=== PATIENT | female | born 1980 ===

== ENCOUNTER 2017-04-10 05:07 | Inpatient (IN) | payer BC ==
[2017-04-10] MEDS ORDERED: NS 0.9% 1000 ML* 1,000 ML IV ONE (05:49)
[2017-04-10] MEDS ORDERED: Ketorolac INJ* 30 MG/ML 1 ML VIAL IV PUSH ONE (05:50)
--- NOTE | 2017-04-10 06:14 | ED ---
Perla Nguyen Alfonso, scribed for Quinn Ba MD on 04/10/17 at 0518 . Headache - HPI Summary HPI Summary: This patient is a 36 year old female presenting to [facility] c/o a headache since yesterday afternoon. The headache gradually worsened, waking her up at 0300 today. She reports back pain since yesterday morning that is affected by change in position. She rates the pain 10/10 in severity. Headache symptoms aggravated by light and not alleviated by Tylenol. She also reports nausea, fever, weakness , and diaphoresis. Patient reports not having visited a PCP in the last 20 years. - History Of Current Complaint Chief Complaint: EDHeadache Stated Complaint: BACK PAIN/HEADACHE Hx Obtained From: Patient Onset/Duration: Gradual Onset, Started hours ago - Yesterday afternoon, Worse Since Initially Headache Was: Initial Pain Scale(0-10)= - 10/10, Moderate Currently Pain Is: Moderate Timing: Constant Aggravating Factor: Bright Lights Allevating Factors: Nothing, Other (Noted In Comments) - Not allevated by Tylenol Associated Signs And Symptoms: Nausea, Fever, Other (Noted In Comments) - Positive diaphoresis, weakness, and back pain - Allergies/Home Medications Allergies/Adverse Reactions: Allergies Allergy/AdvReac Type Severity Reaction Status Date / Time Ephedrine Allergy Shortness Verified 04/10/17 05:14 of Breath Home Medications: Home Medications NK [No Home Medications Reported] 04/10/17 [History Confirmed 04/10/17] PMH/Surg Hx/FS Hx/Imm Hx Sensory History: Denies: Hx Legally Blind, Hx Deafness Infectious Disease History: Denies: Traveled Outside the [place] in Last 30 Days - Family History Known Family History: Positive: Hypertension - Mother and father, Other - Marfan syndrome brother - Social History Lives: With Family Alcohol Use: None Substance Use Type: Reports: None Hx Tobacco Use: No Smoking Status (MU): Never Smoked Tobacco Review of Systems Positive: Fever, Skin Diaphoresis Positive: Nausea Positive: Arthralgia - Back pain Positive: Headache, Weakness All Other Systems Reviewed And Are Negative: Yes Physical Exam Triage Information Reviewed: Yes Vital Signs On Initial Exam: Initial Vitals Temp Pulse Resp BP Pulse Ox 98.3 F 94 20 111/83 98 04/10/17 05:11 04/10/17 05:11 04/10/17 05:11 04/10/17 05:11 04/10/17 05:11 Vital Signs Reviewed: Yes Appearance: Positive: Well-Appearing, Pain Distress - mildly uncomfortable Skin: Positive: Warm Head/Face: Positive: Normal Head/Face Inspection Eyes: Positive: EOMI, VINOD, Conjunctiva Clear ENT: Positive: Pharynx normal, TMs normal Neck: Positive: Supple, Nontender Respiratory/Lung Sounds: Positive: Clear to Auscultation, Breath Sounds Present Cardiovascular: Positive: RRR Abdomen Description: Positive: Nontender, No Organomegaly, Soft Bowel Sounds: Positive: Present Musculoskeletal: Positive: Strength/ROM Intact Neurological: Positive: Sensory/Motor Intact, Alert, Oriented to Person Place, Time, Normal Gait Psychiatric: Positive: Affect/Mood Appropriate Diagnostics - Vital Signs Vital Signs Temp Pulse Resp BP Pulse Ox 04/10/17 05:11 98.3 F 94 20 111/83 98 - Laboratory Result Diagrams: 04/10/17 06:03 04/10/17 06:03 Lab Statement: Any lab studies that have been ordered have been reviewed, and results considered in the medical decision making process. Re-Evaluation - Re-Evaluation First Eval Re-Evaluation Time: 06:45 Change: Improved - pt improving with fluids, awaiting labs and re evaluation, will sign out Headache Course/Dx - Diagnoses Provider Diagnoses: Viral meningitis Discharge - Discharge Plan Condition: Stable Disposition: ADMITTED TO [facility] documentation as recorded by the Perla hernandez Alfonso accurately reflects the service I personally performed and the decisions made by , Quinn Ba MD.
[2017-04-10 06:21] LABS: Hematocrit 40 % (35-47); Hemoglobin 13.4 g/dl (12.0-16.0); Mean Corpuscular HGB Conc 33 g/dl (31-36); Mean Corpuscular Hemoglobin 29 pg (27-31); Mean Corpuscular Volume 87 fL (80-97); Mean Platelet Volume 9 um3 (7.4-10.4); Red Blood Count 4.62 10^6/ul (4.0-5.4); Red Cell Distribution Width 13 % (10.5-15); White Blood Count 8.5 10^3/ul (3.5-10.8)
[2017-04-10 06:30] LABS: ALT 12 U/L (7-52); AST 12 U/L (13-39); Albumin 4.3 g/dL (3.2-5.2); Alkaline Phosphatase 50 U/L (34-104); Anion Gap 6 mmol/L (2-11); BUN/Creatinine Ratio 17.5 (8-20); Blood Urea Nitrogen 10 mg/dL (6-24); C Reactive Protein 1.54 mg/L (< 5.00); CO2 Carbon Dioxide 25 mmol/L (22-32); Calcium 9.1 mg/dL (8.6-10.3); Chloride 105 mmol/L (101-111); Creatine Kinase 61 U/L (10-223); EGFR African American 153.5 (>60); EGFR Non-African American 119.3 (>60); Globulin 2.6 g/dL (2-4); Glucose 105 mg/dL (70-100); Magnesium 1.9 mg/dL (1.9-2.7); Potassium 3.9 mmol/L (3.5-5.0); Sodium 136 mmol/L (133-145); Total Protein 6.9 g/dL (6.4-8.9)
[2017-04-10 07:39] LABS: Urine Bilirubin Negative (Negative); Urine Glucose Negative (Negative); Urine Nitrite Negative (Negative)
[2017-04-10 09:34] LABS: Body Fluid Appearance Clear
[2017-04-10 09:37] LABS: CSF Glucose 61 mg/dL (40-70)
[2017-04-10 09:40] LABS: BF RBC Count #1 10; BF WBC Count #1 126
[2017-04-10 09:47] LABS: BF RBC Count #2 9; BF WBC Count #2 128; RBC counts within 6%? Yes; WBC counts within 15%? Yes
[2017-04-10 09:57] LABS: Body Fluid Total Cells Counted 100
[2017-04-10 09:59] LABS: Body Fluid WBC 141 /mcL
[2017-04-10] MEDS ORDERED: Ondansetron INJ* 2 MG/ML VIAL IV PRN (10:11)
[2017-04-10] MEDS ORDERED: Dexamethasone IV* 10 MG in NS 0.9% 50 ML* 50 ML IVPB ONE (11:21)
[2017-04-10] MEDS ORDERED: Vancomycin(*) 750 MG in NS 0.9% 250 ML* 250 ML IVPB ONE (11:21)
[2017-04-10] MEDS ORDERED: NS 0.9% IVPB SCH (12:00)
[2017-04-10] MEDS ORDERED: ACYCLOVIR IVPB SCH (12:00)
[2017-04-10] MEDS ORDERED: Dexamethasone IV* 4 MG/ML 5 ML VIAL (20 MG) ONE (12:17)
[2017-04-10] MEDS: Acetaminophen TAB* 325 MG PO PRN ×2 (12:39→21:53)
[2017-04-10] MEDS ORDERED: Ketorolac INJ* 30 MG/ML 1 ML VIAL IV PUSH PRN (13:42)
[2017-04-10] MEDS ORDERED: Vancomycin(*) 1,250 MG in NS 0.9% 250 ML* 250 ML IVPB ONE (14:00)
[2017-04-10] MEDS ORDERED: Vancomycin per Pharmacy* NOTE FOLLOW UP PRN (14:10)
--- NOTE | 2017-04-10 16:39 | ED ---
Harhsa Nguyen Auryana, scribed for Ryan Hall MD on 04/10/17 at 0844 . Progress - Progress Note Progress Note: signout from Dr. Ba to Dr. Hall at 07:00 Pending UA. 36 year old female presents with a severe KELLY, back pain, neck pain for 1 day. She also has a fever, and general weakness. KELLY made worse by light. No history of KELLY. No lymphadenopathy. Will do a LP. Procedure note: After informed consent was obtained, she was prepped and draped in the usual sitting fashion. She was anesthetized with 2% lidocaine - 2cc. A 22 gauge needle was used to enter the dura and about 4 cc's of clear fluid was obtained easily. The opening pressure was 22 cm's She tolerated the procedure well and was dressed and placed flat. - Results/Orders Results/Orders: UA - SPEC GRAV 1.005 BUT OTHERWISE NML LP - (+) for WBC 141 - Consult/PCP Time Called: 10:06 Consult/PCP: hospitalist - DR. GLEASON Consult Reason/Comments: elevated WBC in CSF - agrees to admit patient Course/Dx - Course Course Of Treatment: Ms. Aissatou Huang presented with a bad KELLY and no previous history of KELLY. She got a bit better with toradol but was still quite symptomatic when I saw her. Her LP returned with a viral picture and she was admitted to the hospitalist service iin stable condition with a diagnosis of meningitis. - Diagnoses Provider Diagnoses: Viral meningitis - Provider Notifications Discussed Care Of Patient With: Rosy Gleason Time Discussed With Above Provider: 10:07 - agrees to admit - Critical Care Time Critical Care Time: 30-74 min The documentation as recorded by the Harsha hernandez Auryana accurately reflects the service I personally performed and the decisions made by me, Ryan Hall MD.
--- NOTE | 2017-04-10 16:48 | HP ---
HISTORY AND PHYSICAL: DATE OF ADMISSION: 04/10/17 PRIMARY CARE PROVIDER: None. ATTENDING PHYSICIAN: Rosy Bowens MD *(dictated by Keven Vargas NP). CHIEF COMPLAINT: Headache. HISTORY OF PRESENT ILLNESS: Ms. Aissatou Huang is a 36-year-old female with no significant past medical history who reports developing a headache yesterday afternoon that got worse over the time and eventually after she went to bed, woke her up at 3 a.m. The patient reports associated back pain, nausea, fever, diaphoresis, generalized weakness, sensitivity to light. The patient is a recent immigrant from [place], immigrating 7 months ago. The patient denies any recent history of hiking or exposure to ticks that she is aware of. She presented to the hospital for further evaluation of her symptoms. While in the emergency room, the patient had labs that were unremarkable. She had a urinalysis that was unremarkable. Due to the patient's complaint of headache, she underwent a lumbar puncture. This is significant for white blood cell count of 141 and a total protein of 152. CSF Gram stain was positive for 3 + polys, 4+ nucleated cells, no organisms. Based off the patient's presentation and concern for meningitis, the hospitalists were asked to evaluate the patient for admission. PAST MEDICAL HISTORY: None. PAST SURGICAL HISTORY: None. HOME MEDICATIONS: None. ALLERGIES: EPHEDRINE. FAMILY HISTORY: The patient's mother and father have a history of hypertension and the patient's brother has history of Marfan syndrome. The patient denies any other family history of coronary artery disease, diabetes mellitus, or cancer. SOCIAL HISTORY: The patient denies tobacco use, alcohol use, or recreational drug use. She is and lives with her , Jose F Meza, who will be her surrogate decision maker in the event she is unable to make decisions for herself. REVIEW OF SYSTEMS: I performed a 14-point review of systems. All the pertinent positive and negatives are mentioned in the history of present illness. The remaining review of systems are negative. PHYSICAL EXAMINATION GENERAL APPEARANCE: The patient is alert, pleasant, appears to be in no acute distress. VITAL SIGNS: Temperature 99.2, heart rate 97, respiratory rate 16, O2 sat 100% on room air, blood pressure 117/63. HEENT: Normocephalic, atraumatic. Pupils are equal and reactive to light. Extraocular movements are intact. NECK: Supple. There is no lymphadenopathy noted. The patient reports some discomfort with moving her chin to her chest. RESPIRATORY: There is no accessory muscle use. The lungs are clear to auscultation bilateral. CARDIOVASCULAR: Regular rate and rhythm. S1 and S2 present. There is no murmurs, rubs or gallops heard. ABDOMEN: Soft, nontender, and nondistended. There are bowel sounds present x4. EXTREMITIES: There is no lower extremity edema. DP and PT pulses are 2+ and symmetric. MUSCULOSKELETAL: There is no clubbing or cyanosis noted. The patient exhibits good strength in all extremities. NEUROLOGIC: The patient is alert and oriented x4. Cranial nerves II through XII are grossly intact. PSYCHOLOGICAL: The patient is calm and cooperative. SKIN: There is no rashes or abnormalities seen. DIAGNOSTIC STUDIES/LABORATORY DATA: Sodium 136, potassium 3.9, chloride 105, CO2 of 25, BUN 10, creatinine 0.57, glucose 105. White blood cell count 8.5, hemoglobin 13.4, hematocrit 40, and platelet count 276,000. CRP 1.54. Lumbar puncture with cerebrospinal fluid significant for WBC's 141 and total protein 152. Urinalysis is negative. IMPRESSION: Ms. Aissatou Huang is a 36-year-old female with no significant past medical history who presents to the emergency room with complaints of sudden onset of headache for 1 day. She will be admitted as an observation for meningitis. ASSESSMENT/PLAN: 1. Meningitis. I suspect this is a viral meningitis. The patient will have neurological checks and supportive care. We will provide her with pain control and nausea medicine. She will be placed on ceftriaxone 2 g IV twice daily in addition to vancomycin per pharmacy protocol with a trough goal of 15 to 20. We will also add on varicella zoster PCR to her spinal fluid in addition to herpes simplex PCR. We will touch base with Infectious Disease to see if they recommend any other testing. 2. Fluids, electrolytes and nutrition. The patient will be on a regular diet. 3. Code status. Full code. 4. DVT prophylaxis. The patient is a low risk and will be encouraged to ambulate. If she is unable to ambulate, we will place SCD's on her. 5. Disposition. Observation. TIME SPENT: The time for this admission was approximately 60 minutes and greater than half of that was spent [id number] with the patient and discussing medications, past medical history and the events leading up to her arrival today and performing a physical examination. The case has been reviewed with the attending, Dr. Bowens, who agrees with the plan of care. Reviewed by KEVEN VARGAS, LISA-C 04/10/17 2136 [id number]/[facility] #: [id number] MTDD
[2017-04-10] MEDS: Vancomycin(*) 1,000 MG in NS 0.9% 250 ML* 250 ML IVPB SCH (20:10)
[2017-04-11] MEDS: Vancomycin(*) 1,000 MG in NS 0.9% 250 ML* 250 ML IVPB SCH ×4 (03:11→20:12)
--- NOTE | 2017-04-11 13:43 | PN ---
Subjective Date of Service: 04/11/17 Interval History: . pt reports she feels much much better today reporting her KELLY is almost resolved , photophobia has resolved, no further fevers, nausea. She reports her appetite has returned. She can get OOB and ambulate to the bathroom today which she states she could not do yesterday. She also reports she was not able to bend her knees and flex her hips yesterday but is now able to move her legs freely; she has some residual low back pain but much improved compared to yesterday - she does still feel guarded with her movements secondary to back pain. 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 She reports the viruses she works with are non-pathogenic. She has tested + for CMV , EBV and herpes in the past. Objective Active Medications: Acetaminophen (Tylenol Tab*) 650 mg PO Q6H PRN PRN Reason: pain/fever Last Admin: 04/10/17 21:53 Dose: 650 mg Ceftriaxone Sodium 2 gm/ (Sodium Chloride) 100 mls @ 200 mls/hr IVPB Q12H PENDING SALE TO [facility] Last Admin: 04/11/17 01:56 Dose: 200 mls/hr Vancomycin HCl 1,000 mg/ (Sodium Chloride) 250 mls @ 166.667 mls/hr IVPB Q6H PENDING SALE TO [facility] Last Admin: 04/11/17 09:41 Dose: 166.667 mls/hr Ketorolac Tromethamine (Toradol Inj*) 30 mg IV PUSH Q6H PRN PRN Reason: PAIN Ondansetron HCl (Zofran Inj*) 4 mg IV Q6H PRN PRN Reason: NAUSEA Pharmacy Consult (Vancomycin Per Pharmacy*) 1 note FOLLOW UP . PRN PRN Reason: PER PROTOCOL Pharmacy Profile Note (Vancomycin Trough Check) 1 note FOLLOW UP 1500 ONE Stop: 04/11/17 15:01 Vital Signs 04/10/17 04/10/17 04/10/17 15:40 19:23 19:50 Temperature 99.2 F 97.6 F Pulse Rate 111 106 Respiratory 16 18 18 Rate Blood Pressure 120/64 118/66 (mmHg) O2 Sat by Pulse 98 99 Oximetry 04/10/17 04/10/17 04/11/17 22:00 23:38 03:56 Temperature 98.0 F 98.9 F 97.8 F Pulse Rate 116 96 Respiratory 16 14 Rate Blood Pressure 117/58 104/53 (mmHg) O2 Sat by Pulse 98 99 Oximetry 04/11/17 04/11/17 04/11/17 07:46 08:00 11:30 Temperature 98.1 F Pulse Rate 89 94 Respiratory 16 16 16 Rate Blood Pressure 105/54 108/58 (mmHg) O2 Sat by Pulse 99 99 Oximetry Oxygen Devices in Use Now: None Appearance: 36 yo female A+O x3 in NAD. Eyes: No Scleral Icterus, PERRLA Ears/Nose/Mouth/Throat: NL Teeth, Lips, Gums, Mucous Membranes Moist Neck: NL Appearance and Movements; NL JVP Respiratory: Symmetrical Chest Expansion and Respiratory Effort, Clear to Auscultation Cardiovascular: NL Sounds; No Murmurs; No JVD, RRR, No Edema Abdominal: NL Sounds; No Tenderness; No Distention Extremities: No Edema, No Clubbing, Cyanosis Skin: No Rash or Ulcers, No Nodules or Sclerosis Neurological: Alert and Oriented x 3, NL Sensation, NL Muscle Strength and Tone , - - negative brudzinski Lines/Tubes/Other Access: Clean, Dry and Intact Peripheral IV Nutrition: Taking PO's Result Diagrams: 04/10/17 06:03 04/10/17 06:03 Assess/Plan/Problems-Billing Assessment: Ms. Aissatou Huang is a 36 yo female with no significant PMH who presented to the ED on 04/10 with sudden onset of KELLY x 1 day with accompanied back pain, nausea, fever, diaphoresis, photophobia and generalized weakness admitted for viral meningitis - Patient Problems (1) Viral meningitis Comment: - suspect viral meningistis with CSF WBC 141, total protein 152 and clinical symptoms she presented with - was given decadron in ED and started on vano, ceftriaxone. - lyme, herpes/varicella CSF PCR sent and is pending. Add on HIV. - Continue Neuro checks - ID to consult tomorrow. (2) DVT prophylaxis Comment: SCDs (3) Full code status Status: Acute Status and Disposition: inpatient with viral meningitis. Plan for ID consult tomorrow.
[2017-04-11] MEDS: Acetaminophen TAB* 325 MG PO PRN (14:24)
[2017-04-11] MEDS ORDERED: Vancomycin Trough Check NOTE FOLLOW UP ONE (15:00)
[2017-04-12] MEDS: Vancomycin(*) 1,000 MG in NS 0.9% 250 ML* 250 ML IVPB SCH ×2 (03:10→09:33)
[2017-04-12] MEDS: Acetaminophen TAB* 325 MG PO PRN ×2 (04:06→19:38)
[2017-04-12 07:26] LABS: Hematocrit 37 % (35-47); Hemoglobin 12.3 g/dl (12.0-16.0); Mean Corpuscular HGB Conc 33 g/dl (31-36); Mean Corpuscular Hemoglobin 30 pg (27-31); Mean Corpuscular Volume 90 fL (80-97); Mean Platelet Volume 9 um3 (7.4-10.4); Red Blood Count 4.14 10^6/ul (4.0-5.4); Red Cell Distribution Width 13 % (10.5-15); White Blood Count 8.6 10^3/ul (3.5-10.8)
[2017-04-12 07:34] LABS: BUN/Creatinine Ratio 11.1 (8-20); Calcium 8.5 mg/dL (8.6-10.3); EGFR African American 163.4 (>60); Potassium 3.5 mmol/L (3.5-5.0)
--- NOTE | 2017-04-12 10:22 | PN ---
Subjective Date of Service: 04/12/17 Interval History: Patient seen and examined at bedside, at bedside. She reports feeling better than she did previously this weekend. Reports headache is "almost gone," denies photophobia, n/v, chest pain, SOB. She only endorses feeling tired and fatigued and is eager to go home. Family History: Unchanged from Admission Social History: Unchanged from Admission Past Medical History: Unchanged from Admission Objective Active Medications: Acetaminophen (Tylenol Tab*) 650 mg PO Q6H PRN PRN Reason: pain/fever Last Admin: 04/12/17 04:06 Dose: 650 mg Ceftriaxone Sodium 2 gm/ (Sodium Chloride) 100 mls @ 200 mls/hr IVPB Q12H [facility] Last Admin: 04/12/17 01:05 Dose: 200 mls/hr Vancomycin HCl 1,000 mg/ (Sodium Chloride) 250 mls @ 166.667 mls/hr IVPB Q6H [facility] Last Admin: 04/12/17 09:33 Dose: 166.667 mls/hr Ketorolac Tromethamine (Toradol Inj*) 30 mg IV PUSH Q6H PRN PRN Reason: PAIN Ondansetron HCl (Zofran Inj*) 4 mg IV Q6H PRN PRN Reason: NAUSEA Pharmacy Consult (Vancomycin Per Pharmacy*) 1 note FOLLOW UP . PRN PRN Reason: PER PROTOCOL Pharmacy Profile Note (Vancomycin Trough Check) 1 note FOLLOW UP 0900 ONE Stop: 04/13/17 09:01 Vital Signs 04/11/17 04/11/17 04/11/17 15:12 20:00 23:45 Temperature 98.6 F 98.9 F Pulse Rate 99 93 Respiratory 16 16 16 Rate Blood Pressure 108/63 115/65 (mmHg) O2 Sat by Pulse 98 98 Oximetry 04/12/17 04/12/17 04:03 07:38 Temperature 100.2 F 98.2 F Pulse Rate 93 85 Respiratory 16 16 Rate Blood Pressure 111/64 108/61 (mmHg) O2 Sat by Pulse 98 98 Oximetry Oxygen Devices in Use Now: None Appearance: Young female, lying in bed, NAD Eyes: PERRLA Ears/Nose/Mouth/Throat: Mucous Membranes Moist Neck: NL Appearance and Movements; NL JVP Respiratory: Symmetrical Chest Expansion and Respiratory Effort, Clear to Auscultation Cardiovascular: NL Sounds; No Murmurs; No JVD, RRR Abdominal: NL Sounds; No Tenderness; No Distention Extremities: No Edema, No Clubbing, Cyanosis Skin: No Rash or Ulcers Neurological: Alert and Oriented x 3, NL Muscle Strength and Tone Lines/Tubes/Other Access: Clean, Dry and Intact Peripheral IV Nutrition: Taking PO's Result Diagrams: 04/12/17 06:51 04/12/17 06:51 Assess/Plan/Problems-Billing Assessment: Ms. Aissatou Huang is a 36 yo female with no significant PMH who presented to the ED on 04/10 with sudden onset of KELLY x 1 day with accompanied back pain, nausea, fever, diaphoresis, photophobia and generalized weakness admitted for viral meningitis - Patient Problems (1) Viral meningitis Code(s): A87.9 - VIRAL MENINGITIS, UNSPECIFIED Comment: Suspect viral meningitis CSF WBC 141, total protein 152, glucose 61 Received dexamethasone in ED and started on vancomycin, ceftriaxone. Lyme, HSV, varicella CSF PCR sent and is pending. Add on HIV. Continue Neuro checks ID input appreciated. (2) DVT prophylaxis Comment: SCDs (3) Full code status Code(s): Z78.9 - OTHER SPECIFIED HEALTH STATUS Status and Disposition: Inpatient with viral meningitis. ID consult pending.
--- NOTE | 2017-04-12 19:01 | CONS ---
CONSULTATION REPORT: DATE OF CONSULT: 04/12/17 REQUESTING PHYSICIAN: Dr. Matute. CONSULTING SERVICE: Infectious Disease. REASON FOR CONSULT: Aseptic meningitis. IMPRESSION: Three days of headache, fever, and photophobia. Spinal fluid shows 140 white cells, 75% lymphocytes, protein 150, glucose normal. Gram stain showed no organisms. The culture of the spinal fluid is negative. Technically, most consistent with aseptic meningitis due to viral function. The differential diagnosis includes the enteroviruses, though she lacks GI type symptoms, arboviruses including West Nile, tick-borne would be - borrelia; however, she does not have an EM rash, and she has recovered quite quickly which I guess is against the Lyme meningitis a little bit. She is from [place]. TB is a consideration; however, acute onset and improvement without antituberculosis therapy are used against it as well. RECOMMENDATION: We will stop the vancomycin, change to ceftriaxone to 1 g a day to cover Lyme while awaiting the Lyme antibody. She has had spinal fluid sent for HSV and varicella, which is pending. We will add a [facility] encephalitis panel to get the other arboviruses tested for. HISTORY OF PRESENT ILLNESS: This is a 36-year-old healthy woman admitted with headache and fever. She was well until Wednesday. She developed diffuse back pain , which was progressive and then muscle aches and stiffness, and then a fever and then headache and photophobia in sequence. Because of worsening of all those symptoms, she came to the ER on 04/10/17. She had a white blood cell count of 8. She was febrile to 101. She had minimal improvement with Toradol. She had spinal fluid obtained with results as noted above. She was started on vancomycin and ceftriaxone. Wednesday, she was feeling much better, and then yesterday, some of the headache came back, mostly the frontal, not worse sitting up or standing. Her back pain came a little more focal in the low back. This morning, she had a temperature of 38 degrees. When she woke up this morning, her headache was improved again. Back pain was a bit more mid back and it has moved a little bit during the day. When she lies still, she has no headache or back pain. They both get a little bit worse with movement, even rolling over in bed. Photophobia is improving. No phonophobia. She has no fevers today. Her appetite has improved. She is feeling more energetic. PAST MEDICAL HISTORY: None. ALLERGIES: EPHEDRINE. FAMILY HISTORY: None. SOCIAL HISTORY: She is from [place]. Moved here with her . 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 REVIEW OF SYSTEMS: All negative for review of systems except as noted above. PHYSICAL EXAM: Vital Signs: Temperature 37, heart rate 80, respiratory rate 16 , blood pressure 108/61, O2 sat 98% on room air. General: She is awake, not in distress. Neurologic: She is oriented x3, follows all commands. Cranial nerves II through XII are intact. HEENT: There is no conjunctival hemorrhage. Oropharynx without lesions. Neck: Neck is supple without nuchal rigidity. There is no cervical, supraclavicular, inguinal, axillary, or epitrochlear lymphadenopathy. Heart: Regular rate and rhythm without murmurs, rubs, or gallops. Lungs: Clear to auscultation bilaterally. Abdomen: Soft, nontender , nondistended. Skin: There is no rash or splinter hemorrhages. Musculoskeletal: No spine tenderness to palpation or paraspinal muscle tenderness to palpation. There is no joint synovitis. DIAGNOSTIC STUDIES/LAB DATA: White blood cell count 8, hemoglobin 12, platelets 260, creatinine 0.5, beta HCG negative. CRP 1. Please see impression and recommendations outlined above, which I have discussed with Carrie Chew NP. Thank you for asking me to see Ms. Aissatou Huang in consultation. [id number]/[facility] #: [id number] KATHY
[2017-04-13 07:46] VITALS: BP 104/64
--- NOTE | 2017-04-13 08:49 | PN ---
Subjective Date of Service: 04/13/17 Interval History: Patient seen and examined at bedside. She feels well rested and overall "much better." She reports a mild KELLY along the left side of her head that is "barely there." She is tolerating PO intake. No acute concerns at this time. She is ambulating without difficulty. Family History: Unchanged from Admission Social History: Unchanged from Admission Past Medical History: Unchanged from Admission Objective Active Medications: Acetaminophen (Tylenol Tab*) 650 mg PO Q6H PRN PRN Reason: pain/fever Last Admin: 04/12/17 19:38 Dose: 650 mg Ceftriaxone Sodium 1 gm/ (Sodium Chloride) 100 mls @ 200 mls/hr IVPB Q24HR LIZ Ketorolac Tromethamine (Toradol Inj*) 30 mg IV PUSH Q6H PRN PRN Reason: PAIN Ondansetron HCl (Zofran Inj*) 4 mg IV Q6H PRN PRN Reason: NAUSEA Vital Signs 04/12/17 04/12/17 04/12/17 12:46 15:27 19:28 Temperature 97.9 F 97.8 F 98.7 F Pulse Rate 78 84 86 Respiratory 16 15 16 Rate Blood Pressure 115/71 130/72 103/56 (mmHg) O2 Sat by Pulse 98 99 98 Oximetry 04/12/17 04/12/17 04/12/17 20:26 20:29 23:14 Temperature 98.4 F Pulse Rate 79 Respiratory 16 16 16 Rate Blood Pressure 101/57 (mmHg) O2 Sat by Pulse 99 Oximetry 04/13/17 07:16 Temperature 98.7 F Pulse Rate 87 Respiratory 16 Rate Blood Pressure 104/64 (mmHg) O2 Sat by Pulse 98 Oximetry Oxygen Devices in Use Now: None Appearance: Young female, lying in bed, NAD Eyes: PERRLA Ears/Nose/Mouth/Throat: Mucous Membranes Moist Neck: NL Appearance and Movements; NL JVP, - - no nuchal rigidity Respiratory: Symmetrical Chest Expansion and Respiratory Effort, Clear to Auscultation Cardiovascular: NL Sounds; No Murmurs; No JVD, RRR Abdominal: NL Sounds; No Tenderness; No Distention Extremities: No Edema, No Clubbing, Cyanosis Skin: No Rash or Ulcers Neurological: Alert and Oriented x 3, NL Muscle Strength and Tone Lines/Tubes/Other Access: Clean, Dry and Intact Peripheral IV Nutrition: Taking PO's Result Diagrams: 04/12/17 06:51 04/12/17 06:51 Assess/Plan/Problems-Billing Assessment: Ms. Aissatou Huang is a 36 yo female with no significant PMH who presented to the ED on 04/10 with sudden onset of KELLY x 1 day with accompanied back pain, nausea, fever, diaphoresis, photophobia and generalized weakness admitted for viral meningitis - Patient Problems (1) Viral meningitis Code(s): A87.9 - VIRAL MENINGITIS, UNSPECIFIED Comment: Suspect viral meningitis CSF WBC 141, total protein 152, glucose 61 Continue ceftriaxone, pending return of Lyme and other PCR testing. Lyme, HSV, varicella CSF PCR sent and is pending. HIV negative Continue Neuro checks ID input appreciated. (2) DVT prophylaxis Comment: SCDs (3) Full code status Code(s): Z78.9 - OTHER SPECIFIED HEALTH STATUS Status and Disposition: Inpatient with viral meningitis. ID following.
[2017-04-13] MEDS ORDERED: Vancomycin Trough Check NOTE FOLLOW UP ONE (09:00)
[2017-04-13 14:53] LABS: HSV 1 PCR, CSF Negative (Negative); HSV 2 PCR, CSF Positive (Negative)
[2017-04-13 21:15] LABS: Varicella Zoster Result Negative (Negative); Varicella Zoster Source CSF
--- NOTE | 2017-04-14 15:21 | DS ---
CC: Dr. Ramsey.* DISCHARGE SUMMARY: DATE OF ADMISSION: 04/11/17 DATE OF DISCHARGE: 04/13/17 PROVIDER: Joellen Prince NP ATTENDING PHYSICIAN: Maxwell Vargas MD *(as dictated by Joellen Prince NP). CONSULTING PHYSICIAN: Dr. Ramsey. PRIMARY CARE PROVIDER: No primary care provider, referral sent. PRIMARY DISCHARGE DIAGNOSES: 1. Viral meningitis. 2. Positive HSV-2 CSF result. MEDICATIONS AT DISCHARGE: None. HOSPITAL COURSE OF STAY: For full details, please refer to the H and P provided by Kandy Valdez, nurse practitioner, on 04/10/17. In summary, Ms. 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 She had a lumbar puncture in the emergency room, which was significant for a WBC count of 141 and total protein of 152. Her CSF Gram stain was positive for 3+ polys, 4+ nucleated cells, and no organisms. The patient had concerns for viral meningitis and was admitted to medicine floor and started on IV ceftriaxone, vancomycin. The patient had an ID consult during her admission; ID agreed with ordered antibiotic therapy. The patient had testing sent off, which included HSV and varicella PCRs of cerebrospinal fluid as well as lyme and the [place] State Encephalitis Panel. The patient did seem to improve and her headache complaints also improved. At the time of discharge, the patient reported only a mild headache, but better overall. This was discussed with ID who felt the patient could be discharged home and follow up with them as an outpatient. No further antibiotic treatment was recommended. The patient did have a positive PCR for the HSV-2 that came back just prior to discharge. No antiviral is recommended at this time as these infections are usually self limiting, per ID. CONCERNS AT DISCHARGE: Ms. Aissatou Huang is discharged to home on 04/13/17. She was advised to follow up with her PCP within 1 week. Our meeting/event planner is assisting in finding her a PCP as she is new to the area (recently moved here from [place]). The patient was also given the physician referral line information. She is also to follow up with ID. They will call her for an appointment. OUTPATIENT FOLLOWUP NEEDS: The patient needs to follow up on the results of her CSF testing, including varicella, lyme, and the [place] Encephalitis Panel. DIET: May resume regular diet. ACTIVITY: As tolerated. CONDITION: Stable. DISPOSITION: To home. TIME SPENT: Time spent on this discharge was approximately 45 minutes. Again, this is only a brief summary of the patient's hospital course of stay. For full details, please refer to the full medical record. If you have any further questions or need further assistance, please feel free to contact me at . JOELLEN PRINCE, MAX [id number]/CPS #: [id number] KATHY
[2017-04-15 23:11] LABS: Lyme IgG WB Serum NEGATIVE; Lyme IgM Bands Det Serum 23Kd; Lyme IgM WB Serum NEGATIVE
== END 2017-04-13 16:10 | disposition home or self-care (01) | DRG 51 ==
LOC: ED 05:07 → MED 10:10 → OBSVTOIN 04-11 14:46
PROVIDERS: ADMIT Internal Medicine; ATTEND Internal Medicine
PROC: 009U3ZX Drainage of Spinal Canal, Percutaneous Approach, Diagnostic (ICD-10-PCS; principal; 2017-04-11)
DX: A87.9 Viral meningitis, unspecified (principal); B00.9 Herpesviral infection, unspecified; Z88.8 Allergy status to other drugs, medicaments and biological substances; Z82.49 Family history of ischemic heart disease and other diseases of the circulatory system
CPT/HCPCS: 36415; 80048; 80053; 80202; 81003; 82550; 82945; 83605; 83735; 84157; 84702; 85025; 86140; 86617; 86618; 86703; 87070; 87205; 87529; 87798; 89051; A9270-GY; G0378; J0696; J1885; J3370